=== PATIENT | female | born 1995 | race Caucasian/White ===

== ENCOUNTER 2016-12-10 19:03 | Emergency (ER) | payer MEDICAID ==
[2016-12-10] MEDS ORDERED: ONDANSETRON 4 MG/2 ML VIAL IVP STA (20:25)
[2016-12-10] MEDS ORDERED: MORPHINE 2 MG/ML SYRINGE IVP STA (20:25)
[2016-12-10] MEDS ORDERED: MORPHINE 2 MG/ML SYRINGE ONE (20:31)
[2016-12-10] MEDS ORDERED: ONDANSETRON 4 MG/2 ML VIAL ONE (20:31)
[2016-12-10] MEDS ORDERED: IOPAMIDOL-300 100 ML VIAL IVP ONE (21:48)
[2016-12-10] MEDS ORDERED: HYDROcod/ACETAM 5/325 MG TABLET PO STA (22:39)
[2016-12-10] MEDS ORDERED: HYDROcod/ACETAM 5/325 MG TABLET ONE (22:44)
== END 2016-12-10 23:00 | disposition home or self-care (01) ==
DX: R10.11 Right upper quadrant pain (principal); R10.31 Right lower quadrant pain; R11.0 Nausea; Z87.19 Personal history of other diseases of the digestive system
CPT/HCPCS: 36415; 74177; 80053; 81003; 81025; 83690; 85025; 96374; 96375; 99283; 99284; A9270; Q9967